=== PATIENT | female | born 1980 | race Native Hawaiian/Other Pacific Islander ===

== ENCOUNTER 2021-01-21 08:45 | Emergency (ER) | payer OTHER ==
[~2021-01-21] VITALS: Ht 177.8 cm; Wt 128.4 kg
[2021-01-21 08:54] VITALS: TEMP 97.3
[2021-01-21 09:52] VITALS: BP 136/80
== END 2021-01-21 09:53 | disposition home or self-care (01) ==
LOC: ED 08:45
DX: M25.511 Pain in right shoulder (principal); M75.51 Bursitis of right shoulder
CPT/HCPCS: 93005; 96372; 99283; J1885; J2930